=== PATIENT | male | born 1975 | race Caucasian/White ===

== ENCOUNTER 2020-05-13 12:07 | Inpatient (IN) ==
[2020-05-13 13:39] LABS: Albumin 2.6 G/DL (3.4-5.0); Bilirubin,Total 0.4 MG/DL (0.2-1.0); Calcium 8.8 MG/DL (8.5-10.1); Osmolality,Calculated 269.7 MOS/KG (273-304); Total Protein 7.9 G/DL (6.4-8.3)
[2020-05-13 13:50] LABS: Basophils % 0.2 % (0.0-0.8); Hemoglobin 13.2 GM/DL (14.0-18.0); Immature Granulocytes % 0.4 %; Immature Granulocytes Absolute 0.05 #; Lymphocytes # 1.1 10*3/uL (1.4-4.0); Mean Corpuscular Volume 84.2 FL (87-102); Mean Platelet Volume 9.4 FL (9.6-12.0); Monocytes % 11.3 % (1.7-12.7); Neutrophils % 79.1 % (38.7-73.9); Platelet Count 237 T/CUMM (130-400); Red Blood Count 4.75 MC/CUMM (3.8-5.5); Red Cell Distribution Width 13.1 % (9.3-17.3); White Blood Count 11.9 T/CUMM (4-12)
[2020-05-13] MEDS ORDERED: ACETAMINOPHEN 325 MG TABLET PO PRN (14:55)
[2020-05-13] MEDS ORDERED: GLUCAGON 1 MG VIAL IM PRN (14:55)
[2020-05-13] MEDS ORDERED: MORPHINE 4 MG/1 ML VIAL IV PRN (14:55)
[2020-05-13] MEDS ORDERED: DEXTROSE 50% 25 GM/50 ML VIAL IV PRN (14:55)
[2020-05-13] MEDS ORDERED: ZALEPLON 5 MG CAPSULE PO PRN (14:55)
[2020-05-13] MEDS ORDERED: PROMETHAZINE 25 MG/1 ML VIAL IM PRN (14:55)
[2020-05-13] MEDS ORDERED: ONDANSETRON 4 MG/2 ML VIAL IV PRN (14:55)
[2020-05-13] MEDS ORDERED: SODIUM CHLORIDE 0.9% 1,000 ML IV STA (15:01)
[2020-05-13 15:20] LABS: Ferritin 297.7 ng/ml (26-388)
[2020-05-13] MEDS ORDERED: DEXAMETHASONE INJ 10 MG in SODIUM CHLORIDE 0.9% 50 ML IV STA (15:22)
[2020-05-13] MEDS ORDERED: DEXAMETHASONE 10 MG/1 ML VIAL IV STA (15:26)
[2020-05-13] MEDS: AZITHROMYCIN INJ 500 MG in SODIUM CHLORIDE 0.9% 250 ML IV SCH (18:33)
[2020-05-13] MEDS: SODIUM CHLORIDE 0.9% 1,000 ML IV SCH ×2 (18:33→22:29)
[2020-05-13] MEDS: ZINC SULFATE 220 MG CAPSULE PO SCH (18:33)
[2020-05-13] MEDS: INSULIN REGULAR 100 UNIT/ML SUBCUT SCH ×2 (18:33→20:21)
[2020-05-13] MEDS: cefTRIAXone 1,000 MG in SYRINGE 1 EACH IV SCH (18:33)
[2020-05-13] MEDS: ALBUTEROL INHALER 18 GM INH SCH (18:58)
[2020-05-13] MEDS: ASCORBIC ACID 500 MG TABLET PO SCH (20:20)
[2020-05-13] MEDS: ENOXAPARIN 40 MG/0.4 ML SYRINGE SUBCUT SCH (20:21)
[2020-05-14] MEDS: ALBUTEROL INHALER 18 GM INH SCH ×4 (00:29→19:20)
[2020-05-14] MEDS: guaiFENesin 200 MG/10 ML UDCUP PO PRN ×3 (02:15→23:14)
[2020-05-14 05:03] LABS: Basophils % 0.1 % (0.0-0.8); Hematocrit 38.4 VOL% (42.0-52.0); Hemoglobin 12.8 GM/DL (14.0-18.0); Immature Granulocytes % 0.7 %; Immature Granulocytes Absolute 0.05 #; Lymphocytes # 0.5 10*3/uL (1.4-4.0); Lymphocytes % 7.4 % (21.2-54.2); Mean Corpuscular HGB Conc 33.3 GM/DL (32-36); Mean Corpuscular Volume 84.6 FL (87-102); Mean Platelet Volume 9.8 FL (9.6-12.0); Monocytes % 8.4 % (1.7-12.7); Neutrophils % 83.4 % (38.7-73.9); Platelet Count 261 T/CUMM (130-400); Red Blood Count 4.54 MC/CUMM (3.8-5.5); White Blood Count 6.9 T/CUMM (4-12)
[2020-05-14 05:28] LABS: Ferritin 300.8 ng/ml (26-388)
[2020-05-14 05:35] LABS: Albumin 2.5 G/DL (3.4-5.0); Bilirubin,Total 0.6 MG/DL (0.2-1.0); Calcium 8.1 MG/DL (8.5-10.1); Osmolality,Calculated 274.4 MOS/KG (273-304); Risk Ratio 2.42; Thyroid Stimulating Hormone 0.486 uIU/ml (0.358-3.74); Total Protein 6.8 G/DL (6.4-8.3); VLDL CHOLESTEROL 11.6 MG/DL
[2020-05-14] MEDS: SODIUM CHLORIDE 0.9% 1,000 ML IV SCH (06:14)
[2020-05-14] MEDS: INSULIN REGULAR 100 UNIT/ML SUBCUT SCH ×4 (07:59→20:29)
[2020-05-14] MEDS: ZINC SULFATE 220 MG CAPSULE PO SCH ×2 (07:59→16:17)
[2020-05-14] MEDS: PANTOPRAZOLE 40 MG TABLET PO SCH (08:00)
[2020-05-14] MEDS: ASCORBIC ACID 500 MG TABLET PO SCH ×2 (08:00→20:30)
[2020-05-14] MEDS ORDERED: DEXAMETHASONE INJ 10 MG in SODIUM CHLORIDE 0.9% 50 ML IV SCH (09:00)
[2020-05-14] MEDS ORDERED: FUROSEMIDE 40 MG/4 ML VIAL IV ONE (09:46)
[2020-05-14] MEDS ORDERED: ERGOCALCIFEROL 50,000 UNIT CAPSULE PO SCH (12:00)
[2020-05-14] MEDS ORDERED: DEXAMETHASONE INJ 6 MG in SODIUM CHLORIDE 0.9% 50 ML IV SCH (12:51)
[2020-05-14] MEDS: AZITHROMYCIN INJ 500 MG in SODIUM CHLORIDE 0.9% 250 ML IV SCH (14:31)
[2020-05-14] MEDS: INSULIN GLARGINE 100 UNIT/ML SUBCUT SCH (14:53)
[2020-05-14] MEDS: lisinopriL 10 MG TABLET PO SCH (16:12)
[2020-05-14] MEDS: cefTRIAXone 1,000 MG in SYRINGE 1 EACH IV SCH (16:13)
[2020-05-14] MEDS ORDERED: REMDESIVIR 200 MG in SODIUM CHLORIDE 0.9% 210 ML IV ONE (17:00)
[2020-05-14] MEDS: ENOXAPARIN 40 MG/0.4 ML SYRINGE SUBCUT SCH (20:30)
[2020-05-15] MEDS: ALBUTEROL INHALER 18 GM INH SCH ×4 (01:14→19:13)
[2020-05-15 05:06] LABS: Basophils % 0.1 % (0.0-0.8); Hematocrit 37.4 VOL% (42.0-52.0); Hemoglobin 12.4 GM/DL (14.0-18.0); Immature Granulocytes % 1.2 %; Immature Granulocytes Absolute 0.15 #; Lymphocytes # 0.8 10*3/uL (1.4-4.0); Lymphocytes % 6.2 % (21.2-54.2); Mean Corpuscular HGB Conc 33.2 GM/DL (32-36); Mean Corpuscular Volume 84.8 FL (87-102); Mean Platelet Volume 9.9 FL (9.6-12.0); Monocytes % 9.5 % (1.7-12.7); Platelet Count 280 T/CUMM (130-400); Red Blood Count 4.41 MC/CUMM (3.8-5.5); White Blood Count 12.9 T/CUMM (4-12)
[2020-05-15 05:32] LABS: Calcium 8.4 MG/DL (8.5-10.1); Ferritin 263.9 ng/ml (26-388)
[2020-05-15 06:23] LABS: Sedimentation Rate-Westergren 64 MM/HR (0-15)
[2020-05-15] MEDS: INSULIN REGULAR 100 UNIT/ML SUBCUT SCH ×4 (08:49→21:21)
[2020-05-15] MEDS: INSULIN GLARGINE 100 UNIT/ML SUBCUT SCH (08:50)
[2020-05-15] MEDS: DEXAMETHASONE 10 MG/1 ML VIAL IV SCH (08:50)
[2020-05-15] MEDS: PANTOPRAZOLE 40 MG TABLET PO SCH (08:51)
[2020-05-15] MEDS: lisinopriL 10 MG TABLET PO SCH (08:51)
[2020-05-15] MEDS: ZINC SULFATE 220 MG CAPSULE PO SCH ×2 (08:51→17:35)
[2020-05-15] MEDS: ASCORBIC ACID 500 MG TABLET PO SCH ×2 (09:42→21:22)
[2020-05-15] MEDS: cefTRIAXone 1,000 MG in SYRINGE 1 EACH IV SCH (14:54)
[2020-05-15] MEDS: AZITHROMYCIN INJ 500 MG in SODIUM CHLORIDE 0.9% 250 ML IV SCH (14:54)
[2020-05-15] MEDS: REMDESIVIR 100 MG in SODIUM CHLORIDE 0.9% 230 ML IV SCH (17:34)
[2020-05-15] MEDS: ENOXAPARIN 40 MG/0.4 ML SYRINGE SUBCUT SCH (21:22)
[2020-05-16] MEDS: ALBUTEROL INHALER 18 GM INH SCH ×4 (01:49→19:16)
[2020-05-16 05:19] LABS: Basophils % 0.1 % (0.0-0.8); Hematocrit 37.4 VOL% (42.0-52.0); Hemoglobin 12.1 GM/DL (14.0-18.0); Immature Granulocytes % 0.9 %; Immature Granulocytes Absolute 0.13 #; Lymphocytes # 1.2 10*3/uL (1.4-4.0); Lymphocytes % 8.4 % (21.2-54.2); Mean Corpuscular HGB Conc 32.4 GM/DL (32-36); Mean Corpuscular Volume 85.2 FL (87-102); Mean Platelet Volume 9.7 FL (9.6-12.0); Monocytes % 12.5 % (1.7-12.7); Neutrophils % 78.1 % (38.7-73.9); Platelet Count 312 T/CUMM (130-400); Red Blood Count 4.39 MC/CUMM (3.8-5.5); Red Cell Distribution Width 13.3 % (9.3-17.3); White Blood Count 14.4 T/CUMM (4-12)
[2020-05-16 05:48] LABS: Calcium 8.6 MG/DL (8.5-10.1); Ferritin 198.7 ng/ml (26-388); Osmolality,Calculated 282.7 MOS/KG (273-304)
[2020-05-16] MEDS: INSULIN REGULAR 100 UNIT/ML SUBCUT SCH ×4 (09:39→21:12)
[2020-05-16] MEDS: INSULIN GLARGINE 100 UNIT/ML SUBCUT SCH (09:43)
[2020-05-16] MEDS: ASCORBIC ACID 500 MG TABLET PO SCH ×2 (09:44→21:11)
[2020-05-16] MEDS: ZINC SULFATE 220 MG CAPSULE PO SCH ×2 (09:44→16:28)
[2020-05-16] MEDS: lisinopriL 10 MG TABLET PO SCH (09:44)
[2020-05-16] MEDS: PANTOPRAZOLE 40 MG TABLET PO SCH (09:44)
[2020-05-16] MEDS: DEXAMETHASONE 10 MG/1 ML VIAL IV SCH (11:11)
[2020-05-16] MEDS: cefTRIAXone 1,000 MG in SYRINGE 1 EACH IV SCH (15:19)
[2020-05-16] MEDS: AZITHROMYCIN INJ 500 MG in SODIUM CHLORIDE 0.9% 250 ML IV SCH (15:19)
[2020-05-16] MEDS: REMDESIVIR 100 MG in SODIUM CHLORIDE 0.9% 230 ML IV SCH (16:27)
[2020-05-16] MEDS ORDERED: FUROSEMIDE 40 MG/4 ML VIAL IV ONE (16:35)
[2020-05-16] MEDS: ENOXAPARIN 40 MG/0.4 ML SYRINGE SUBCUT SCH (21:11)
[2020-05-17] MEDS: ALBUTEROL INHALER 18 GM INH SCH ×4 (00:52→19:40)
[2020-05-17 05:50] LABS: Basophils % 0.2 % (0.0-0.8); Hematocrit 36.5 VOL% (42.0-52.0); Hemoglobin 12.1 GM/DL (14.0-18.0); Immature Granulocytes Absolute 0.25 #; Lymphocytes # 1.1 10*3/uL (1.4-4.0); Lymphocytes % 8.4 % (21.2-54.2); Mean Corpuscular HGB Conc 33.2 GM/DL (32-36); Mean Corpuscular Volume 83.1 FL (87-102); Mean Platelet Volume 9.5 FL (9.6-12.0); Monocytes % 12.1 % (1.7-12.7); Neutrophils % 77.3 % (38.7-73.9); Platelet Count 312 T/CUMM (130-400); Red Blood Count 4.39 MC/CUMM (3.8-5.5); Red Cell Distribution Width 13.2 % (9.3-17.3); White Blood Count 12.7 T/CUMM (4-12)
[2020-05-17 06:12] LABS: Calcium 8.7 MG/DL (8.5-10.1); Ferritin 197.9 ng/ml (26-388); Osmolality,Calculated 278.2 MOS/KG (273-304)
[2020-05-17] MEDS: INSULIN REGULAR 100 UNIT/ML SUBCUT SCH ×4 (08:45→21:10)
[2020-05-17] MEDS: DEXAMETHASONE 10 MG/1 ML VIAL IV SCH (08:46)
[2020-05-17] MEDS: ZINC SULFATE 220 MG CAPSULE PO SCH ×2 (08:46→17:19)
[2020-05-17] MEDS: ASCORBIC ACID 500 MG TABLET PO SCH ×2 (08:47→21:10)
[2020-05-17] MEDS: lisinopriL 10 MG TABLET PO SCH (08:47)
[2020-05-17] MEDS: PANTOPRAZOLE 40 MG TABLET PO SCH (08:47)
[2020-05-17] MEDS: INSULIN GLARGINE 100 UNIT/ML SUBCUT SCH (09:17)
[2020-05-17] MEDS: cefTRIAXone 1,000 MG in SYRINGE 1 EACH IV SCH (15:26)
[2020-05-17] MEDS: AZITHROMYCIN INJ 500 MG in SODIUM CHLORIDE 0.9% 250 ML IV SCH (15:26)
[2020-05-17] MEDS: REMDESIVIR 100 MG in SODIUM CHLORIDE 0.9% 230 ML IV SCH (17:18)
[2020-05-17] MEDS: ENOXAPARIN 40 MG/0.4 ML SYRINGE SUBCUT SCH (21:10)
[2020-05-18] MEDS: ALBUTEROL INHALER 18 GM INH SCH ×4 (00:42→21:33)
[2020-05-18 06:09] LABS: Basophils # 0.1 10*3/uL (0.0-0.2); Basophils % 0.4 % (0.0-0.8); Eosinophils # 0.1 10*3/uL (0.0-0.87); Eosinophils % 0.4 % (0.00-10.9); Hematocrit 39.4 VOL% (42.0-52.0); Hemoglobin 13.2 GM/DL (14.0-18.0); Immature Granulocytes % 2.4 %; Immature Granulocytes Absolute 0.38 #; Lymphocytes # 1.4 10*3/uL (1.4-4.0); Lymphocytes % 8.6 % (21.2-54.2); Mean Corpuscular HGB Conc 33.5 GM/DL (32-36); Mean Corpuscular Volume 83.8 FL (87-102); Mean Platelet Volume 9.6 FL (9.6-12.0); Neutrophils % 77.2 % (38.7-73.9); Platelet Count 341 T/CUMM (130-400); Red Cell Distribution Width 13.2 % (9.3-17.3)
[2020-05-18 06:32] LABS: Calcium 9.1 MG/DL (8.5-10.1)
[2020-05-18] MEDS: INSULIN REGULAR 100 UNIT/ML SUBCUT SCH ×4 (08:26→21:33)
[2020-05-18] MEDS: ZINC SULFATE 220 MG CAPSULE PO SCH ×2 (08:26→17:38)
[2020-05-18] MEDS: DEXAMETHASONE 10 MG/1 ML VIAL IV SCH (08:27)
[2020-05-18] MEDS: lisinopriL 10 MG TABLET PO SCH (08:27)
[2020-05-18] MEDS: INSULIN GLARGINE 100 UNIT/ML SUBCUT SCH (08:27)
[2020-05-18] MEDS: ASCORBIC ACID 500 MG TABLET PO SCH ×2 (08:28→21:34)
[2020-05-18] MEDS: PANTOPRAZOLE 40 MG TABLET PO SCH (08:28)
[2020-05-18] MEDS: AZITHROMYCIN INJ 500 MG in SODIUM CHLORIDE 0.9% 250 ML IV SCH ×2 (13:35→14:45)
[2020-05-18 15:06] LABS: ABG Base Excess 0.4 MMOL/L (-2.5-2.5); ABG HCO3 24.7 MMOL/L (20-26); ABG Oxygen Saturation 96.1 % (95-100); ABG PCO2 37.9 MM HG (35-48); ABG PO2 82.1 MM HG (80-95); ABG TCO2 21.7 MMOL/L (23-27)
[2020-05-18] MEDS: cefTRIAXone 1,000 MG in SYRINGE 1 EACH IV SCH (15:20)
[2020-05-18] MEDS: REMDESIVIR 100 MG in SODIUM CHLORIDE 0.9% 230 ML IV SCH (17:08)
[2020-05-18] MEDS: ENOXAPARIN 40 MG/0.4 ML SYRINGE SUBCUT SCH (21:34)
[2020-05-19] MEDS: ALBUTEROL INHALER 18 GM INH SCH ×3 (00:59→12:41)
[2020-05-19] MEDS: INSULIN REGULAR 100 UNIT/ML SUBCUT SCH ×2 (08:05→11:31)
[2020-05-19] MEDS ORDERED: FLUTICASONE 50 MCG NASAL SPRAY 16 GM BOTTLE BOTH NARES SCH (09:00)
[2020-05-19] MEDS: ASCORBIC ACID 500 MG TABLET PO SCH (10:00)
[2020-05-19] MEDS: ZINC SULFATE 220 MG CAPSULE PO SCH (10:00)
[2020-05-19] MEDS: PANTOPRAZOLE 40 MG TABLET PO SCH (10:00)
[2020-05-19] MEDS: DEXAMETHASONE 10 MG/1 ML VIAL IV SCH (10:00)
[2020-05-19] MEDS: INSULIN GLARGINE 100 UNIT/ML SUBCUT SCH (10:00)
[2020-05-19] MEDS: lisinopriL 10 MG TABLET PO SCH (10:00)
[2020-05-19 11:43] VITALS: BP 113/93
== END 2020-05-19 15:00 | disposition home health service (06) | DRG 177 ==
LOC: N.ED 12:07 → N.EDINP 14:55 → N.2E 16:09
PROVIDERS: ADMIT Internal Medicine; ATTEND Internal Medicine